=== PATIENT | female | born 1970 | race Caucasian/White ===

== ENCOUNTER 2018-06-12 16:47 | Inpatient (IN) ==
[2018-06-12] MEDS ORDERED: LORazepam 1 MG/2 ML VIAL IV STA (18:05)
[2018-06-12] MEDS ORDERED: ACETAMINOPHEN 1,000 MG/100 ML VIAL IV STA (18:05)
[2018-06-12] MEDS ORDERED: SODIUM CHLORIDE 0.9% 500 ML IV ONE (18:05)
[2018-06-12 18:27] LABS: Basophils # (auto) 0.04 K/uL (0-0.2); Basophils % (auto) 0.6 %; Eosinophils # (auto) 0.15 K/uL (0-0.5); Eosinophils % (auto) 2.3 %; Hematocrit (blood only) 40.2 % (37-47); Hemoglobin 13.7 g/dL (12.0-16.0); Immature Granulocytes # (auto) 0.01 K/uL (0.00-0.02); Immature Granulocytes % (auto) 0.2 %; Lymphocytes # (auto) 1.86 K/uL (1.2-3.4); Lymphocytes % (auto) 28.9 %; Mean Corpuscular Hgb Conc 34.1 g/dL (32-36); Mean Corpuscular Volume 85.9 fL (80-100); Mean Platelet Volume 9.4 fL (7.4-10.4); Monocytes # (auto) 0.39 K/uL (0.11-0.59); Monocytes % (auto) 6.1 %; Neutrophils # (auto) 3.99 K/uL (1.4-6.5); Neutrophils % (auto) 61.9 %; Platelet Count 376 K/uL (130-400); RDW Coefficient of Variation 12.8 % (11.5-14.5); RDW Standard Deviation 40.6 fL (36.4-46.3); Red Blood Count 4.68 M/uL (4.2-5.4); White Blood Count 6.44 K/uL (4.8-10.8)
[2018-06-12 18:42] LABS: Pregnancy Test, Serum Negative (Negative)
[2018-06-12 18:43] LABS: Alanine Aminotransferase 21 U/L (12-78); Albumin Level 3.7 gm/dl (3.4-5.0); Aspartate Aminotransferase 12 U/L (15-37); BUN Creatinine Ratio 15.2 (10-20); Blood Urea Nitrogen 11 mg/dl (7-18); Calcium 8.7 mg/dl (8.5-10.1); Carbon Dioxide 27 mmol/L (21-32); Chloride 107 mmol/L (98-107); Creatinine Clr Calc Pharmacy 86.9 ml/min; Est GFR (African American) 115.9; Glucose 82 mg/dl (70-99); Magnesium 2.1 mg/dl (1.8-2.4); Potassium 3.4 mmol/L (3.5-5.1); Sodium 140 mmol/L (136-145)
[2018-06-12 18:54] LABS: Albumin Globulin Ratio 1.1 (0.9-2); Alkaline Phosphatase 99 U/L (45-117); Bilirubin,Total 0.4 mg/dl (0.2-1); Globulin 3.4 gm/dl (2.5-4.0); Total Protein 7.1 gm/dl (6.4-8.2); Troponin I < 0.015 ng/ml (0-0.045)
--- NOTE | 2018-06-12 19:44 | XRay Report ---
XR abdomen 2V w PA chest CLINICAL HISTORY: 47 years-old Female presenting with nausea, abd pain, palpitations. TECHNIQUE: PA view of the chest and supine and upright views of the abdomen were obtained. COMPARISON: None. FINDINGS: Atherosclerosis of the aortic arch. Cardiac silhouette normal in size. Lungs and pleural spaces clear . Cholecystectomy clips noted. Suture material noted at the gastroesophageal junction. Suture margin no db in the left mid abdomen, which may relate to prior gastric sleeve procedure. Nonobstructive bowel gas pattern. No gross pneumoperitoneum. Allowing for bowel gas and stool, no calcifications to suggest nephrolithiasis. Osseous structures normal. IMPRESSION: 1. No acute cardiopulmonary disease. 2. Post-surgical changes in the abdomen without radiographic evidence of acute intra-abdominal patho logy. Electronically signed by: Fabio Grijalva M.D. 06/12/2018 7:43 PM
[2018-06-12 20:44] LABS: Appearance Urine Clear (Clear); Bilirubin Urine Negative (Negative); Blood Urine Negative (Negative); Color Urine Yellow; Glucose Urine UA Negative (Negative); Leukocyte Esterase Urine Negative (Negative); Nitrite Urine Negative (Negative); Protein Urine Negative (Negative); Specific Gravity Urine 1.036 (1.000-1.030); Urobilinogen Urine Negative (Negative)
[2018-06-12] MEDS ORDERED: IOVERSOL 100ml IV PRN (20:45)
[2018-06-12 20:46] LABS: Ketones Urine 3+ (Negative)
--- NOTE | 2018-06-12 20:58 | CT Scan Report ---
CT abd pelvis IV con only CLINICAL HISTORY: 47 years-old Female presenting with generalized abd pain, n/v. TECHNIQUE: Multidetector CT of the abdomen and pelvis was performed after the administration of intra venous contrast. IV contrast: 94 mL of Optiray 320. One or more dose lowering techniques were used co nsistent with the principles of ALARA (as low as reasonably achievable), including automatic exposure control, mA or kV adjustment to individual patient size, and/or use of iterative reconstruction. COMPARISON: None. CT DOSE (mGy.cm): The estimated cumulative dose is 280.38 mGy.cm. FINDINGS: Community Engagement Representative topogram: Unremarkable. Lung bases: Normal heart size. No pericardial or pleural effusion. No focal infiltrate or nodule at t he lung bases. Liver: Normal morphology. Hypodensity along the fissure for the ligamentum teres likely perfusional v ariation or focal fat. Patent hepatic vasculature. Biliary: No intrahepatic or extrahepatic biliary ductal dilatation. Gallbladder surgically absent. Pancreas: Normal. Spleen: Normal. Splenule noted. Adrenal glands: Normal. Kidneys and ureters: Well-defined hypodensity in the right kidney likely simple cysts. Additional sma ller simple cysts may be present in the left kidney though too small to characterize. No nephrolithia sis or hydronephrosis. Ureters nondistended. Bladder: Incompletely evaluated secondary to underdistention. A urethral diverticulum is likely prese nt. Pelvic organs: Uterus surgically absent. Simple appearing 3.1 cm cyst in the right ovary. Left ovary normal. Bowel: Normal. No bowel obstruction. Small to moderate hiatal hernia. Postsurgical changes of the sto mach likely gastric sleeve procedure. Peritoneal cavity: No free fluid or intraperitoneal gas. Lymph nodes: No enlarged lymph nodes in the abdomen or pelvis. Vasculature: Aorta and IVC patent and normal in caliber. Abdominal wall: Postsurgical changes of the midline ventral abdominal wall. Musculoskeletal: Normal. IMPRESSION: 1. Small to moderate hiatal with postsurgical changes of gastric sleeve procedure. No bowel obstruct ion or other complication is evident. No convincing evidence of acute intra-abdominal pathology. 2. Simple appearing 3.1 cm cyst in the right ovary. Assuming a premenopausal status, this would be c onsidered benign with no follow-up indicated per the [employer] incidental finding s committee II recommendations. Electronically signed by: Fabio Grijalva M.D. 06/12/2018 8:56 PM
[2018-06-12 22:12] LABS: Amphetamines+Metham, Urine Neg (Neg); Barbiturates, Urine Neg (Neg); Benzodiazepine, Urine Neg (Neg); Cocaine, Urine Neg (Neg); MDMA (Ecstacy), Urine Pos (Neg); Methadone, Urine Neg (Neg); Opiate, Urine Neg (Neg); Phencyclidine, Urine Neg (Neg)
--- NOTE | 2018-06-12 22:21 | Emergency Department Note ---
Entered by Bhavesh Nash acting as a scribe for Allison Weinberg DO History of Present Illness General Chief complaint: Neuro Symptoms/Deficit Stated complaint: ABDOMINAL SPASMS, MOUTH NUMB Time Seen by Provider: 06/12/18 17:45 Source: patient History of Present Illness Onset (ago): month(s) 1 Location: head Radiation: back Pain Consistency: + other (worsening) Quality: + other (anxiety) Relieved By: + other (heat, arching her back) Associated symptoms: + other (She also complains of cramping, back pain, nausea, a decreased appetite, SOB, and palpitations. She denies any fever, diarrhea, vomiting, and urinary symptoms. ) The patient is a 47 year old female who presents to the emergency department wit h complaints of worsening anxiety beginning a month ago. The patient states that she has a history of PTSD, depression, and anorexia. The patient states that she had an abdominoplasty done seven months ago. She notes that she has been healing since then but developed worsening depression throughout the process. She reports that she recently started using medical marijuana last week. The patient states that she started to develop cramping In her abdomen, shoulder, and neck this morning. She notes that her abdominal cramping feels like contractions. She reports that her abdominal pain is relieved with heat or when she arches her back. The patient states that her pain radiates to her back. She also complains of nausea, a decreased appetite, SOB, and palpitations. She denies any fever, diarrhea, vomiting, and urinary symptoms. She notes that she recently stopped taking her magnesium and Klonopin. She notes that she also has a history of gastroparesis, but she reports that her symptoms do not feel similar. Home Medications Home Medications Medication Instructions Recorded Confirmed Type Marijuana 1 dose INHALATION UD PRN 06/12/18 06/12/18 History Multi Enzymes 1 - 3 tabs PO DAILY 06/12/18 06/12/18 History Vitamin C Gummy 48 mg PO DAILY 06/12/18 06/12/18 History albuterol sulfate [ProAir HFA] 2 puff INHALATION Q6H PRN 06/12/18 06/12/18 History bupropion HCl [Wellbutrin SR] 200 mg PO BID 06/12/18 06/12/18 History calcium carbonate [Tums] 200 mg PO UD PRN 06/12/18 06/12/18 History cholecalciferol (vitamin D3) 2,000 unit PO DAILY 06/12/18 06/12/18 History [Vitamin D3] clindamycin phosphate [Cleocin T] 1 applic TOPICAL UD 06/12/18 06/12/18 History clonazepam [Klonopin] 1 mg PO BID PRN 06/12/18 06/12/18 History diclofenac sodium 0 g TOPICAL UD PRN 06/12/18 06/12/18 History docusate sodium [Colace] 100 mg PO DAILY PRN 06/12/18 06/12/18 History fluticasone propionate [Flonase 1 spray INTRANASAL DAILY PRN 06/12/18 06/12/18 History Allergy Relief] ketotifen fumarate [Zaditor] 1 drp OPHTHALMIC (EYE) BID PRN 06/12/18 06/12/18 History levothyroxine [Synthroid] 88 mcg PO QAM 06/12/18 06/12/18 History lorazepam 0.5 mg PO UD PRN 06/12/18 06/12/18 History methylphenidate HCl [Metadate ER] 20 mg PO BID 06/12/18 06/12/18 History multivit with min-folic acid 1 tab PO DAILY 06/12/18 06/12/18 History [Women's Multivitamin Gummies] [id number]-wam-bot-fish oil-L.casei 1 cap PO DAILY 06/12/18 06/12/18 History omeprazole 40 mg PO QAM 06/12/18 06/12/18 History polyethylene glycol 3350 [Miralax] 17 g PO DAILY PRN 06/12/18 06/12/18 History simethicone [Gas Relief 80] 80 mg PO BID PRN 06/12/18 06/12/18 History sulfamethoxazole-trimethoprim 1 tab PO QAM 06/12/18 06/12/18 History [Bactrim] white petrolatum-mineral oil 1 applic OPHTHALMIC (EYE) BID PRN 06/12/18 06/12/18 History [Refresh Lacri-Lube] Allergies Allergy/AdvReac Type Severity Reaction Status Date / Time adhesive Allergy Intermediate Rash Verified 06/12/18 19:36 latex Allergy Intermediate Rash Verified 06/12/18 19:36 fluoxetine [From Prozac] AdvReac Severe Tachycardia Verified 06/12/18 19:37 midazolam [From Versed] AdvReac Severe WON'T WAKE Verified 06/12/18 19:36 UP buspirone [From BuSpar] AdvReac >QRS Verified 06/12/18 19:37 INTERVAL Past Med/Surg History Medical History Anorexia Depression Gastroparesis PTSD (post-traumatic stress disorder) Surgical History H/O abdominoplasty Family History Other No significant family history Social History Preferred Language: [place] Communication Ability: Effective Visitor Service Assistant Required: No Beliefs That Will Affect Care: None Feels Safe at Home: Yes and Hesitant to Answer Smoking Status: Never smoker Hx Substance Use: Yes Review of Systems See HPI for pertinent positives & negatives. and A total of 10 systems reviewed and were otherwise negative Physical Exam Vital Signs Vital Signs - 24 hr 06/14/18 06:51 Temperature 36.6 C Temperature Source Oral Pulse Rate [Left Brachial] 80 Respiratory Rate 16 Respiratory Effort / Characteristics Non-Labored Spontaneous Respiratory Depth Normal Respiratory Pattern Regular Blood Pressure [Left Arm] 111/70 Blood Pressure Mean [Left Arm] 83 Blood Pressure Position [Left Arm] Sitting GENERAL: alert, anxious and tearful appearing, well nourished, in moderate distress, non-toxic EYE EXAM: normal conjunctiva, PERRL and EOM's grossly intact OROPHARYNX: no exudate, no erythema, lips, buccal mucosa, and tongue normal and mucous membranes are moist NECK: supple, no nuchal rigidity, no adenopathy, non-tender LUNGS: Clear to auscultation. Normal chest wall mechanics, no w/r/r HEART: no murmurs, S1 normal and S2 normal ABDOMEN: abdomen soft, normo-active bowel sounds, no masses, no rebound or guard ing, generalized abdominal discomfort with palpation, multiple well healed surgical scars. BACK: Back is symmetrical on inspection and there is no deformity, no midline tenderness, no CVA tenderness. SKIN: no rashes and no bruising UPPER EXTREMITIES: upper extremities are grossly normal. FROM, nml pulses b/l. LOWER EXTREMITIES: No pitting edema. FROM, nml pulses b/l. NEURO EXAM: Normal sensorium, cranial nerves II-XII grossly intact, normal speech, no gross weakness of arms, no gross weakness of legs. Course 1746: The patient was evaluated in room A5, and a complete history and physical examination were performed. 1999: I discussed the patient's case with the psychiatric case management director. She states that the patient is now suicidal with a plan. 2009: I reevaluated and updated the patient. She states that her pain is better but still there. 2134: Updated psych case manager specialist that CT a/p unremarkable and I feel pt is medically clear. UDS still pending. 2351: The patient was seen and evaluated by [facility]. She signed the voluntary admission form. Administered Medications Acetaminophen (Tylenol) 650 mg PO Q4H PRN PRN Reason: Headache or Minor Fever Stop: 07/13/18 00:33 Last Admin: 06/13/18 21:22 Dose: 650 mg Documented by: [id number] Admin: 06/13/18 14:03 Dose: 650 mg Documented by: [id number] Ascorbic Acid (Vitamin C) 500 mg PO DAILY ZEFERINO Stop: 07/14/18 08:59 Last Admin: 06/14/18 08:49 Dose: 500 mg Documented by: [id number] Bupropion HCl (Wellbutrin) 200 mg PO BID@0600,1400 [facility] Stop: 07/13/18 05:59 Last Admin: 06/14/18 14:30 Dose: 200 mg Documented by: [id number] Admin: 06/14/18 08:49 Dose: 200 mg Documented by: [id number] Admin: 06/14/18 06:41 Dose: Not Given Documented by: [id number] Admin: 06/13/18 14:00 Dose: 200 mg Documented by: [id number] Admin: 06/13/18 06:26 Dose: 200 mg Documented by: [id number] Clonazepam (Klonopin) 0.5 mg PO BID17 ZEFERINO Stop: 07/14/18 16:59 Last Admin: 06/14/18 20:59 Dose: 0.5 mg Documented by: [id number] Diclofenac Sodium (Voltaren 1% Top) 1 appln EXT QID PRN PRN Reason: Pain Stop: 07/13/18 16:59 Last Admin: 06/14/18 21:59 Dose: 1 appln Documented by: [id number] Admin: 06/14/18 12:36 Dose: 1 appln Documented by: [id number] Fish Oil ([place]-3 (Purified Fish Oil)) 1 gm PO DAILY ZEFERINO Stop: 07/14/18 08:59 Last Admin: 06/14/18 08:48 Dose: 1 gm Documented by: [id number] Ioversol (Optiray 320 100ml) 94 ml IV ONCE PRN PRN Reason: Interaction Checking Stop: 06/16/18 20:44 Last Admin: 06/12/18 20:46 Dose: 94 ml Documented by: [id number] [facility]othy[facility]) [facility] Stop: 07/13/18 07:59 Last Admin: 06/14/18 06:13 Dose: 88 mcg Documented by: [id number] Admin: 06/13/18 07:27 Dose: 88 mcg Documented by: [id number] Miscellaneous (Order Awaiting Action) 1 ea N/A [facility] Stop: 07/13/18 15:59 Last Admin: 06/14/18 14:33 Dose: Not Given Documented by: [id number] Admin: 06/14/18 07:26 Dose: Not Given Documented by: [id number] Admin: 06/14/18 00:44 Dose: Not Given Documented by: [id number] Admin: 06/13/18 17:38 Dose: Not Given Documented by: [id number] Miscellaneous (Order Awaiting Action) 1 ea N/A [facility] Stop: 07/13/18 15:59 Last Admin: 06/14/18 14:33 Dose: Not Given Documented by: [id number] Admin: 06/14/18 07:26 Dose: Not Given Documented by: [id number] Admin: 06/14/18 00:44 Dose: Not Given Documented by: [id number] Admin: 06/13/18 17:39 Dose: Not Given Documented by: [id number] Miscellaneous (Order Awaiting Action) 1 ea N/A QS [facility] Stop: 07/13/18 15:59 Last Admin: 06/14/18 14:33 Dose: Not Given Documented by: [id number] Admin: 06/14/18 07:26 Dose: Not Given Documented by: [id number] Admin: 06/14/18 00:44 Dose: Not Given Documented by: [id number] Admin: 06/13/18 17:38 Dose: Not Given Documented by: [id number] Multivitamins/Folic Acid/Vitamin C (Flintstones Complete Chew Tab) 1 tab PO DA RUDY ZEFERINO Stop: 07/14/18 08:59 Last Admin: 06/14/18 08:48 Dose: 1 tab Documented by: [id number] Pantoprazole Sodium (Protonix) 40 mg PO QAM ZEFERINO Stop: 07/13/18 12:59 Last Admin: 06/14/18 08:48 Dose: 40 mg Documented by: [id number] Admin: 06/13/18 13:12 Dose: 40 mg Documented by: [id number] Trimethoprim/Sulfamethoxazole (Septra 400/80mg Tab) 1 tab PO QAM ZEFERINO Stop: 06/23/18 08:59 Last Admin: 06/14/18 08:48 Dose: 1 tab Documented by: [id number] Admin: 06/13/18 07:27 Dose: 1 tab Documented by: [id number] Vitamin D (Vitamin D3) 2,000 units PO DAILY ZEFERINO Stop: 07/14/18 08:59 Last Admin: 06/14/18 08:48 Dose: 2,000 units Documented by: [id number] Discontinued Medications Clonazepam (Klonopin) 0.5 mg PO BID ZEFERINO Stop: 07/13/18 11:59 Last Admin: 06/14/18 08:48 Dose: 0.5 mg Documented by: [id number] Admin: 06/13/18 21:23 Dose: 0.5 mg Documented by: [id number] Admin: 06/13/18 11:41 Dose: 0.5 mg Documented by: [id number] Lorazepam (Ativan) 1 mg in 2 mls @ 2 mls/min IV NOW STA Stop: 06/12/18 18:06 Last Admin: 06/12/18 18:28 Dose: 2 mls/min Documented by: [id number] Acetaminophen (Ofirmev) 1,000 mg in 100 mls @ 400 mls/hr IV NOW STA Stop: 06/12/18 18:19 Last Infusion: 06/12/18 18:55 Dose: 0 mls/hr Documented by: [id number] Admin: 06/12/18 18:30 Dose: 400 mls/hr Documented by: [id number] Sodium Chloride (Nss) 500 mls @ 999 mls/hr IV .Q31M ONE Stop: 06/12/18 18:35 Last Infusion: 06/12/18 19:04 Dose: 0 mls/hr Documented by: [id number] Admin: 06/12/18 18:29 Dose: 999 mls/hr Documented by: [id number] Methylphenidate HCl (Ritalin) 20 mg PO BID@0600,1400 [facility] Stop: 06/27/18 05:59 Last Admin: 06/13/18 13:59 Dose: 20 mg Documented by: [id number] Admin: 06/13/18 06:26 Dose: 20 mg Documented by: [id number] Non-Formulary Medication (Omeprazole) 40 mg PO QAM ZEFERINO Stop: 07/13/18 11:49 Last Admin: 06/13/18 15:31 Dose: Not Given Documented by: [id number] Pneumococcal Polyvalent Vaccine (Pneumovax-23) 25 mcg IM .ONCE ONE Stop: 06/13/18 15:31 Last Admin: 06/14/18 14:32 Dose: Not Given Documented by: [id number] Medical Decision Making Differential Diagnosis Differential diagnosis: Etiologies such as biliary colic, cholecystitis, hepatitis, perihepatitis, pancreatitis, cardiac disease, pancreatitis, gastritis, peptic ulcer disease, appendicitis, ovarian cyst, ovarian torsion, ectopic , pelvic inflammatory disease, cystitis, diverticulitis, mesenteric ischemia, inflammatory bowel disease, ileus, bowel obstruction, aortic pathology, shingles, as well as others were considered. Medical Records Attestation: I reviewed the patient's medical records. Home Medications Current Medication List: was personally reviewed by me Laboratory Data Attestation: I reviewed the patient's lab results. Result diagrams: 06/12/18 18:15 06/14/18 12:19 Lab Results 06/12/18 06/12/18 06/12/18 Range/Units 18:15 18:15 18:15 WBC 6.44 (4.8-10.8) K/uL RBC 4.68 (4.2-5.4) M/uL Hgb 13.7 (12.0-16.0) g/dL Hct 40.2 (37-47) % MCV 85.9 (80-100) fL MCH 29.3 (25-34) pg MCHC 34.1 (32-36) g/dL RDW Std Deviation 40.6 (36.4-46.3) fL RDW Coeff of Eva 12.8 (11.5-14.5) % Plt Count 376 (130-400) K/uL MPV 9.4 (7.4-10.4) fL Immature Gran % (Auto) 0.2 % Neut % (Auto) 61.9 % Lymph % (Auto) 28.9 % Robertson % (Auto) 6.1 % Eos % (Auto) 2.3 % Baso % (Auto) 0.6 % Immature Gran # (Auto) 0.01 (0.00-0.02) K/uL Neut # (Auto) 3.99 (1.4-6.5) K/uL Lymph # (Auto) 1.86 (1.2-3.4) K/uL Robertson # (Auto) 0.39 (0.11-0.59) K/uL Eos # (Auto) 0.15 (0-0.5) K/uL Baso # (Auto) 0.04 (0-0.2) K/uL Sodium 140 (136-145) mmol/L Potassium 3.4 L (3.5-5.1) mmol/L Chloride 107 (98-107) mmol/L Carbon Dioxide 27 (21-32) mmol/L Anion Gap 6.0 (3-11) BUN 11 (7-18) mg/dl Creatinine 0.71 (0.6-1.2) mg/dl Est Cr Clr Drug Dosing 86.9 ml/min Est GFR ( Amer) 115.9 Est GFR (Non-Af Amer) 100.0 BUN/Creatinine Ratio 15.2 (10-20) Glucose 82 (70-99) mg/dl Calcium 8.7 (8.5-10.1) mg/dl Phosphorus (2.5-4.9) mg/dl Magnesium 2.1 (1.8-2.4) mg/dl Total Bilirubin 0.4 (0.2-1) mg/dl AST 12 L (15-37) U/L ALT 21 (12-78) U/L Alkaline Phosphatase 99 (45-117) U/L Troponin I < 0.015 (0-0.045) ng/ml Total Protein 7.1 (6.4-8.2) gm/dl Albumin 3.7 (3.4-5.0) gm/dl Globulin 3.4 (2.5-4.0) gm/dl Albumin/Globulin Ratio 1.1 (0.9-2) Lipase 124 (73-393) U/L TSH 0.947 (0.300-4.500) uIu/ml HCG, Qual Negative (Negative) Urine Color Urine Appearance (Clear) Urine pH (4.5-7.5) Ur Specific [place] (1.000-1.030) Urine Protein (Negative) Urine Glucose (UA) (Negative) Urine Ketones (Negative) Urine Blood (Negative) Urine Nitrite (Negative) Urine Bilirubin (Negative) Urine Urobilinogen (Negative) Ur Leukocyte Esterase (Negative) Urine Opiates Screen (Neg) Ur Methadone, Qual (Neg) Urine Barbiturates (Neg) Ur Phencyclidine (PCP) (Neg) U Amphetamin/Meth Scrn (Neg) MDMA (Ecstasy) Screen (Neg) U Benzodiazepines Scrn (Neg) Ur Cocaine Metabolite (Neg) U Marijuana (THC) Screen (Neg) 06/12/18 06/12/18 06/14/18 Range/Units Unknown Unknown 12:19 WBC (4.8-10.8) K/uL RBC (4.2-5.4) M/uL Hgb (12.0-16.0) g/dL Hct (37-47) % MCV (80-100) fL MCH (25-34) pg MCHC (32-36) g/dL RDW Std Deviation (36.4-46.3) fL RDW Coeff of Eva (11.5-14.5) % Plt Count (130-400) K/uL MPV (7.4-10.4) fL Immature Gran % (Auto) % Neut % (Auto) % Lymph % (Auto) % Robertson % (Auto) % Eos % (Auto) % Baso % (Auto) % Immature Gran # (Auto) (0.00-0.02) K/uL Neut # (Auto) (1.4-6.5) K/uL Lymph # (Auto) (1.2-3.4) K/uL Robertson # (Auto) (0.11-0.59) K/uL Eos # (Auto) (0-0.5) K/uL Baso # (Auto) (0-0.2) K/uL Sodium 141 (136-145) mmol/L Potassium 4.1 D (3.5-5.1) mmol/L Chloride 107 (98-107) mmol/L Carbon Dioxide 26 (21-32) mmol/L Anion Gap 7.0 (3-11) BUN 14 (7-18) mg/dl Creatinine 0.73 (0.6-1.2) mg/dl Est Cr Clr Drug Dosing 84.0 ml/min Est GFR ( Amer) 112.1 Est GFR (Non-Af Amer) 96.7 BUN/Creatinine Ratio 19.2 (10-20) Glucose 111 H (70-99) mg/dl Calcium 9.4 (8.5-10.1) mg/dl Phosphorus 3.3 (2.5-4.9) mg/dl Magnesium 2.1 (1.8-2.4) mg/dl Total Bilirubin (0.2-1) mg/dl AST (15-37) U/L ALT (12-78) U/L Alkaline Phosphatase (45-117) U/L Troponin I (0-0.045) ng/ml Total Protein (6.4-8.2) gm/dl Albumin (3.4-5.0) gm/dl Globulin (2.5-4.0) gm/dl Albumin/Globulin Ratio (0.9-2) Lipase (73-393) U/L TSH (0.300-4.500) uIu/ml HCG, Qual (Negative) Urine Color Yellow Urine Appearance Clear (Clear) Urine pH 6.0 (4.5-7.5) Ur Specific [place] 1.036 H (1.000-1.030) Urine Protein Negative (Negative) Urine Glucose (UA) Negative (Negative) Urine Ketones 3+ H (Negative) Urine Blood Negative (Negative) Urine Nitrite Negative (Negative) Urine Bilirubin Negative (Negative) Urine Urobilinogen Negative (Negative) Ur Leukocyte Esterase Negative (Negative) Urine Opiates Screen Neg (Neg) Ur Methadone, Qual Neg (Neg) Urine Barbiturates Neg (Neg) Ur Phencyclidine (PCP) Neg (Neg) U Amphetamin/Meth Scrn Neg (Neg) MDMA (Ecstasy) Screen Pos H (Neg) U Benzodiazepines Scrn Neg (Neg) Ur Cocaine Metabolite Neg (Neg) U Marijuana (THC) Screen Pos H (Neg) Imaging Data Radiologist's Impression: Radiology results as stated below per my review and the radiologist's interpretation: CT abd pelvis IV con only FINDINGS: Fringe Knotter topogram: Unremarkable. Lung bases: Normal heart size. No pericardial or pleural effusion. No focal i nfiltrate or nodule at the lung bases. Liver: Normal morphology. Hypodensity along the fissure for the ligamentum teres likely perfusional variation or focal fat. Patent hepatic vasculature. Biliary: No intrahepatic or extrahepatic biliary ductal dilatation. Gallbladder surgically absent. Pancreas: Normal. Spleen: Normal. Splenule noted. Adrenal glands: Normal. Kidneys and ureters: Well-defined hypodensity in the right kidney likely simple cysts. Additional smaller simple cysts may be present in the left kidney though too small to characterize. No nephrolithiasis or hydronephrosis. Ureters nondistended. Bladder: Incompletely evaluated secondary to underdistention. A urethral diverticulum is likely present. Pelvic organs: Uterus surgically absent. Simple appearing 3.1 cm cyst in the right ovary. Left ovary normal. Bowel: Normal. No bowel obstruction. Small to moderate hiatal hernia. Postsurgical changes of the stomach likely gastric sleeve procedure. Peritoneal cavity: No free fluid or intraperitoneal gas. Lymph nodes: No enlarged lymph nodes in the abdomen or pelvis. Vasculature: Aorta and IVC patent and normal in caliber. Abdominal wall: Postsurgical changes of the midline ventral abdominal wall. Musculoskeletal: Normal. IMPRESSION: 1. Small to moderate hiatal with postsurgical changes of gastric sleeve procedure. No bowel obstruction or other complication is evident. No convincing evidence of acute intra-abdominal pathology. 2. Simple appearing 3.1 cm cyst in the right ovary. Assuming a premenopausal status, this would be considered benign with no follow-up indicated per the [employer] incidental findings committee II recommendations. Electronically signed by: Fabio Grijalva M.D. 06/12/2018 8:56 PM XR abdomen 2V w PA chest FINDINGS: Atherosclerosis of the aortic arch. Cardiac silhouette normal in size. Lungs and pleural spaces clear. Cholecystectomy clips noted. Suture material noted at the gastroesophageal junction. Suture margin noted in the left mid abdomen, which may relate to prior gastric sleeve procedure. Nonobstructive bowel gas pattern. No gross pneumoperitoneum. Allowing for bowel gas and stool, no calcifications to suggest nephrolithiasis. Osseous structures normal. IMPRESSION: 1. No acute cardiopulmonary disease. 2. Post-surgical changes in the abdomen without radiographic evidence of acute intra-abdominal pathology. Electronically signed by: Fabio Grijalva M.D. 06/12/2018 7:43 PM ECG Data Attestation: I personally reviewed and interpreted this ECG as follows: Indication: abdominal pain Rate (beats per minute): 79 Rhythm: sinus rhythm Findings: no PAC, no PVC, no ST depression and no ST elevation Additional Comments: Normal axis, normal intervals. Blood Pressure Blood Pressure Findings: Normal blood pressure Blood Pressure Disposition: elevated BP felt to be situational MDM Narrative Pt here very anxious appearing and during the course of her medical screening exam and evaluation for abdominal pain and cramping, pt told psych case manager specialist she was suicidal. Pt's labs and imaging reassuring here. Pt admitted to for inpatient psych treatment. Impression & Plan Depression, Anxiety Discharge Plan Visit Data *Final* Discharge Date/Time: 06/12/18 23:58 Chief Complaint: Neuro Symptoms/Deficit Stated Complaint: ABDOMINAL SPASMS, MOUTH NUMB ED Provider: Allison Weinberg Discharge Problem: Depression, Anxiety Patient Disposition: Admitted As Inpatient Discharge Instructions Interventions: ED Discharge Assessment Last Done: 06/12/18 23:58 Discharge Problem: Depression Qualifiers: Depression Type: unspecified Qualified Code(s): F32.9 - Major depressive disorder, single episode, unspecified The scribe's documentation has been prepared under my direction and personally reviewed by me in its entirety. I confirm that the note above accurately reflects all work, treatment, procedures, and medical decision making performed by me.
[2018-06-13] MEDS ORDERED: MAGNESIUM HYDROXIDE SUSP 30 ML UDC PO PRN (00:34)
[2018-06-13] MEDS ORDERED: SODIUM CHLORIDE 0.65% NA SOLN 45 ML (OCEAN) PRN (00:34)
[2018-06-13] MEDS ORDERED: BISMUTH SUBSALICYLATE PER ML OMNICELL CHARGE PO PRN (00:34)
[2018-06-13] MEDS ORDERED: ALUMINUM/MAGNESIUM SUSP 30 ML UDC PO PRN (00:34)
[2018-06-13] MEDS: METHYLPHENIDATE HCL 10 MG TABLET PO SCH ×2 (06:26→13:59)
[2018-06-13] MEDS: buPROPion HCl 100 MG TABLET PO SCH ×2 (06:26→14:00)
[2018-06-13] MEDS: LEVOTHYROXINE SODIUM 88 MCG TABLET PO SCH (07:27)
[2018-06-13] MEDS: SULFA/TRIMETH 400/80MG TAB PO SCH (07:27)
[2018-06-13] MEDS: clonazePAM 0.5 MG TAB PO SCH ×2 (11:41→21:23)
[2018-06-13] MEDS ORDERED: FLUTICASONE PROPIONATE NA SPR 16 GM BTL PRN (11:45)
[2018-06-13] MEDS ORDERED: DOCUSATE SODIUM 100 MG CAP PO PRN (11:45)
[2018-06-13] MEDS ORDERED: CALCIUM CARBONATE 500 MG CHEWABLE TAB PO PRN (11:45)
[2018-06-13] MEDS ORDERED: SIMETHICONE 80 MG CHEW PO PRN (11:45)
[2018-06-13] MEDS ORDERED: POLYETHYLENE (MIRALAX) 17 GM PACK PO PRN (11:45)
[2018-06-13] MEDS ORDERED: NON-FORMULARY MEDICATION (Omeprazole 40 MG) PO SCH (11:50)
[2018-06-13] MEDS ORDERED: ALBUTEROL HFA 8 GM INHALER INH PRN (12:30)
[2018-06-13] MEDS: PANTOprazole 40 MG TAB PO SCH (13:12)
[2018-06-13] MEDS: ACETAMINOPHEN 325 MG TAB PO PRN ×2 (14:03→21:22)
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
[2018-06-13] MEDS ORDERED: PNEUMOCOCCAL POLYSACCHARIDES 25 MCG/0.5 ML VIAL/SYR IM ONE (15:30)
[2018-06-13] MEDS ORDERED: PNEUMOCOCCAL ADMINISTRATION CHARGE ONE (15:30)
[2018-06-13] MEDS ORDERED: METHYLPHENIDATE HCL 20 MG PO SCH (21:00)
[2018-06-14] MEDS: LEVOTHYROXINE SODIUM 88 MCG TABLET PO SCH (06:13)
[2018-06-14] MEDS: buPROPion HCl 100 MG TABLET PO SCH ×3 (06:41→14:30)
[2018-06-14] MEDS: PANTOprazole 40 MG TAB PO SCH (08:48)
[2018-06-14] MEDS: clonazePAM 0.5 MG TAB PO SCH ×2 (08:48→20:59)
[2018-06-14] MEDS: FLINTSTONES COMPLETE CHEWABLE TAB PO SCH (08:48)
[2018-06-14] MEDS: SULFA/TRIMETH 400/80MG TAB PO SCH (08:48)
[2018-06-14] MEDS: OMEGA-3 (PURIFIED FISH OIL) 1 GM CAP PO SCH (08:48)
[2018-06-14] MEDS: CHOLECALCIFEROL 1,000 UNITS TAB PO SCH (08:48)
[2018-06-14] MEDS: ASCORBIC ACID 500 MG TAB PO SCH (08:49)
[2018-06-14] MEDS ORDERED: [UNRECOGNIZED DRUG - OTHER] PO SCH (09:00)
--- NOTE | 2018-06-14 11:30 | Psychiatric Progress Note ---
Date of Service June 14, 2018 Impression / Recommendations Impression Jen is a 47 yo female with a long mental health history, medical history complicated by GI surgeries, presents with recurrence of SI with inability to care for self and even thoughts about ending the life of herself and perhaps even her son rather than leaving him behind. SW filed [employer]. Jen presented with some degree of benzo withdrawal (or at least worsening of abdominal wall spasms) following d/c of Klonopin in favor of a trial of medical marijuana. (1) Depression: 06/13 The patient was admitted to the [facility] ([facility] unit) on q15 min checks (behavioral with suicide precautions) for safety. The patient will participate in group, recreational, and milieu therapies and will be offered additional individual and family sessions as clinically appropriate. She was made aware that shorter acting medications are preferred given gastric surgery and that there is a higher risk of seizure in patients with ED on Wellbutrin, particularly dose dependent. She is refusing any med changes today and was so decompensated that a MNPR is required. She was exposing her abdomen repeatedly above the pubis in 1-on-1 session and had difficulty maintaining a conversation. 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 Indication for methylphenidate is unclear and should likely be tapered. Difficulty is no records available this weekend. (2) Anxiety: 06/13 PTSD vs personality, resulting in somatization though given surgical history cannot exclude other etiology. Regardless seems to be some degree of Benzo withdrawal so will resume Klonopin 0.5 mg BID and monitor. (3) Abdominal pain: 06/13 Monitor response to benzo, consider hospitalist consult. 06/14 d/c stimulant, appreciate input from nutrition (4) Eating disorder, unspecified: 06/14--explore level of care assessment when psychiatrically more stable. Inventory Assets Strengths: intelligence, friend network Needs: CYS involvement around son Risk Factors Assessment Male: No : Yes Do You Have Access To A Gun?: No Health Problems: Yes Mental Health Diagnoses: Yes Substance Use Disorders: No (but history, and on controlleds) Previous Attempt: Yes Previous Psychiatric Hospitalization: Yes Hopelessness: Yes Protective Factors Assessment Employed: Yes (Substitute school nurse) Interval History Chief Complaint "I'm relieved but overwhelmed at the same time, I don't want to lose him". Review of Systems Sleep Information Total Hours of Sleep: 6 Meal Information Percent Meal Consumed - Breakfast: 50 Percent Meal Consumed - Lunch: 30 Percent Meal Consumed - Dinner: 25 Subjective Subjective Patient was seen & assessed and interval progress reviewed with Nursing and social scientist. SW did have session with patient's friend and confirmed that no access to opiates or benzos. There was discussion about resuming IOP care for ED and patient states she would be amenable to this. Reviewed need to taper stimulants and now admits that only taking in am anyway for past 2 weeks. Some benefit from Klonopin but since lower dose there was some breakthrough before bedtime but feels that contractions are "more than just withdrawal". She appreciated meeting with finance teacher. Patient remains in bed in position and not appropriate for a roommate at this time due to severity of symptoms. Physical Exam Psychiatric Orientation: alert and oriented x 3 Apperance: + disheveled Eye Contact: + poor eye contact Motor Behavior: no abnormal motor movements (but restless) Speech: normal rate/rhythm/volume of speech Affect: + depressed affect and + anxious affect Mood: + depressed mood Thought Process: + circumstantial thought process Thought Content: + preoccupation; no delusions Suicidal Thoughts: denies suicidal thoughts Homicidal Thoughts: denies homicidal thoughts Hallucinations: no auditory hallucinations and no visual hallucinations Cognition: language grossly intact; + remote memory not intact and + attention not intact Estimated Intelligence: consistent with education level Insight: + poor insight Judgement: + poor judgement Vital Signs (Past 24 Hours) Last Vital Signs Temp 36.6 C 06/14/18 06:51 Pulse 80 06/14/18 06:51 Resp 16 06/14/18 06:51 BP 111/70 06/14/18 06:51 Pulse Ox 99 06/13/18 00:54 Results & Data Current Inpatient Medications Current Inpatient Medications: Current Inpatient Medications Acetaminophen (Tylenol) 650 mg PO Q4H PRN PRN Reason: Headache or Minor Fever Stop: 07/13/18 00:33 Last Admin: 06/13/18 21:22 Dose: 650 mg Documented by: Al Hydrox/Mg Hydrox/Simethicone (Maalox) 30 ml PO Q4H PRN PRN Reason: GI Upset Stop: 07/13/18 00:33 Albuterol (Ventolin Hfa) 2 puffs INH Q4H PRN PRN Reason: SOB/WHEEZING Stop: 07/13/18 12:29 Ascorbic Acid (Vitamin C) 500 mg PO DAILY ZEFERINO Stop: 07/14/18 08:59 Last Admin: 06/14/18 08:49 Dose: 500 mg Documented by: Bismuth Subsalicylate (Kaopectate) 15 ml PO PRN PRN PRN Reason: Loose Stool Stop: 07/13/18 00:33 Bupropion HCl (Wellbutrin) 200 mg PO BID@0600,1400 ZEFERINO Stop: 07/13/18 05:59 Last Admin: 06/14/18 08:49 Dose: 200 mg Documented by: Calcium Carbonate (Tums) 500 mg PO DAILY PRN PRN Reason: Acid Reflux Stop: 07/13/18 11:44 Clonazepam (Klonopin) 0.5 mg PO BID17 [facility] Stop: 07/14/18 16:59 Diclofenac Sodium (Voltaren 1% Top) 1 appln EXT QID PRN PRN Reason: Pain Stop: 07/13/18 16:59 Docusate Sodium (Colace) 100 mg PO DAILY PRN PRN Reason: Constipation Stop: 07/13/18 11:44 Fish Oil ([place]-3 (Purified Fish Oil)) 1 gm PO DAILY ZEFERINO Stop: 07/14/18 08:59 Last Admin: 06/14/18 08:48 Dose: 1 gm Documented by: Fluticasone Propionate (Flonase) 1 sprays NA DAILY PRN PRN Reason: Nasal Congestion Stop: 07/13/18 11:44 Hydroxyzine HCl (Vistaril) 50 mg PO HSZ PRN PRN Reason: Insomnia Stop: 07/13/18 00:33 Hydroxyzine HCl (Vistaril) 25 mg PO Q4H PRN PRN Reason: Anxiety Stop: 07/13/18 00:33 Ioversol (Optiray 320 100ml) 94 ml IV ONCE PRN PRN Reason: Interaction Checking Stop: 06/16/18 20:44 Last Admin: 06/12/18 20:46 Dose: 94 ml Documented by: Levothyroxine Sodium (Synthroid) 88 mcg PO DAILYBB ZEFERINO Stop: 07/13/18 07:59 Last Admin: 06/14/18 06:13 Dose: 88 mcg Documented by: Magnesium Hydroxide (Milk Of Magnesia) 30 ml PO DAILY PRN PRN Reason: Heartburn Stop: 07/13/18 00:33 Miscellaneous (Order Awaiting Action) 1 ea N/A QS ZEFERINO Stop: 07/13/18 15:59 Last Admin: 06/14/18 07:26 Dose: Not Given Documented by: Miscellaneous (Order Awaiting Action) 1 ea N/A QS ZEFERINO Stop: 07/13/18 15:59 Last Admin: 06/14/18 07:26 Dose: Not Given Documented by: Miscellaneous (Order Awaiting Action) 1 ea N/A QS ZEFERINO Stop: 07/13/18 15:59 Last Admin: 06/14/18 07:26 Dose: Not Given Documented by: Multivitamins/Folic Acid/Vitamin C (Flintstones Complete Chew Tab) 1 tab PO DAILY ZEFERINO Stop: 07/14/18 08:59 Last Admin: 06/14/18 08:48 Dose: 1 tab Documented by: Pantoprazole Sodium (Protonix) 40 mg PO QAM ZEFERINO Stop: 07/13/18 12:59 Last Admin: 06/14/18 08:48 Dose: 40 mg Documented by: Polyethylene Glycol (Miralax Powder Packet) 17 gm PO DAILY PRN PRN Reason: Constipation Stop: 07/13/18 11:44 Simethicone (Mylicon) 80 mg PO BID PRN PRN Reason: GAS/BLOATING Stop: 07/13/18 11:44 Sodium Chloride ([place] Nasal) 1 - 2 sprays NA PRN PRN PRN Reason: Nasal Dryness/Congestion Stop: 07/13/18 00:33 Trimethoprim/Sulfamethoxazole (Septra 400/80mg Tab) 1 tab PO QAM ZEFERINO Stop: 06/23/18 08:59 Last Admin: 06/14/18 08:48 Dose: 1 tab Documented by: Vitamin D (Vitamin D3) 2,000 units PO DAILY ZEFERINO Stop: 07/14/18 08:59 Last Admin: 06/14/18 08:48 Dose: 2,000 units Documented by: Post Discharge Appointments Primary Care Physician Name Of Family Doctor: Shreyas Akins Family Medicine Therapist Name of Therapist: Eula Ryder, private practice in [facility] Date of Therapist Appointment: 06/16/18 Time of Therapist Appointment: 9am Package Line Relief Operator Name of Package Line Relief Operator: None CPT Code CPT Code 46955 (1) Depression Depression Type: unspecified Qualified Code(s): F32.9 - Major depressive disorder, single episode, unspecified
[2018-06-14] MEDS: DICLOFENAC SOD 1% GEL 100 GM TUBE EXT PRN ×2 (12:36→21:59)
[2018-06-14 13:01] LABS: BUN Creatinine Ratio 19.2 (10-20); Calcium 9.4 mg/dl (8.5-10.1); Est GFR (African American) 112.1; Est GFR (Non-African American) 96.7; Magnesium 2.1 mg/dl (1.8-2.4); Phosphorus 3.3 mg/dl (2.5-4.9); Potassium 4.1 mmol/L (3.5-5.1)
[2018-06-15] MEDS: LEVOTHYROXINE SODIUM 88 MCG TABLET PO SCH (06:02)
[2018-06-15] MEDS: buPROPion HCl 100 MG TABLET PO SCH ×3 (06:02→13:53)
[2018-06-15] MEDS: FLINTSTONES COMPLETE CHEWABLE TAB PO SCH (08:42)
[2018-06-15] MEDS: OMEGA-3 (PURIFIED FISH OIL) 1 GM CAP PO SCH (08:43)
[2018-06-15] MEDS: ASCORBIC ACID 500 MG TAB PO SCH (08:43)
[2018-06-15] MEDS: clonazePAM 0.5 MG TAB PO SCH ×2 (08:43→20:45)
[2018-06-15] MEDS: SULFA/TRIMETH 400/80MG TAB PO SCH (08:43)
[2018-06-15] MEDS: CHOLECALCIFEROL 1,000 UNITS TAB PO SCH (08:43)
[2018-06-15] MEDS: PANTOprazole 40 MG TAB PO SCH (08:43)
--- NOTE | 2018-06-15 10:25 | Psychiatric Progress Note ---
Date of Service June 15, 2018 Impression / Recommendations Neelam Li is a 47 y/o female with a long mental health history, medical history complicated by GI surgeries, presents with recurrence of SI and thoughts of killing her son, and then herself. CYS has been contacted, and her son is being cared for by friends. She is reporting improved mood, is focused on wanting stimulants and benzodiazepines as well as medical marijuana, and wants to go to inpatient eating disorder treatment at [facility]. (1) Depression: 06/13 The patient was admitted to the [facility] ([facility] mental health unit) on q15 min checks (behavioral with suicide precautions) for safety. The patient will participate in group, recreational, and milieu therapies and will be offered additional individual and family sessions as clinically appropriate. She was made aware that shorter acting medications are preferred given gastric surgery and that there is a higher risk of seizure in patients with ED on Wellbutrin, particularly dose dependent. She is refusing any med changes today and was so decompensated that a MNPR is required. She was exposing her abdomen repeatedly above the pubis in 1-on-1 session and had difficulty maintaining a conversation. 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 Indication for methylphenidate is unclear and should likely be tapered. Difficulty is no records available this weekend. 06/15 -request records from her outpatient psychiatric [facility]ING MACHINE TENDER, Tommy Rodriguez, and SUJATA Pritchett, and send records to coordinate care. -Move bupropion to 0800 hrs. per patient's request, and continue afternoon dose. -Agree with personality disorder diagnosis, with borderline and histrionic traits. (2) Anxiety: 06/13 PTSD vs personality, resulting in somatization though given surgical history cannot exclude other etiology. Regardless seems to be some degree of Benzo withdrawal so will resume Klonopin 0.5 mg BID and monitor. (3) Abdominal pain: 06/13 Monitor response to benzo, consider hospitalist consult. 06/14 d/c stimulant, appreciate input from nutrition 06/15 -reviewed all lab results with patient, BMP within normal limits yesterday, all electrolytes normal. (4) Eating disorder, unspecified: 06/14--explore level of care assessment when psychiatrically more stable. 06/15 -patient requesting referral to [facility] for eating disorder treatment. Denying acute safety concerns. 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 Review of Systems Notes Denies GI symptoms, facial numbness. Sleep Information Total Hours of Sleep: 6 Sleep Comments: pt. sleeps with multi pillows placed positionally to help manage pain/physical discomforts/issues. Meal Information Percent Meal Consumed - Breakfast: 100 Percent Meal Consumed - Lunch: 30 Percent Meal Consumed - Dinner: 50 Subjective Subjective Patient was seen & assessed and interval progress reviewed with Treatment Team. Staff report she is attending and participating in treatment, said she felt relieved after disclosing the thoughts to harm herself and her son, as it has been bothering her a great deal. She was upset after she tried to call her son, and felt like he did not really want to talk to her. She said that made her feel like the future was hopeless and suicide inevitable. She has been interacting appropriately with peers, laughing and joking. She has been focused on wanting to go to a eating disorder program in [place]. On my assessment, the patient states she feels safe and relieved in the hospital, is glad her friends are helping to care for her son, and "I feel grounded and my head is significantly quieter." She rates her mood a 4-5 out of 10, saying "I laughed this morning, I was surprised." She denies SI currently, but says she is realizing "how invasive the thoughts were, how out of control I was" prior to admission, saying "I felt so insane I couldn't stop." She denies thoughts of harming others, saying she told staff she was having thoughts about harming her son because "I realized how overwhelmed I was, I really need help." She says she now realizes "I needed to be here, to be safe, so I'm done fighting that." She says she's "not capable of taking care of Stephen right now, can't even take care of myself." She wants to "put a system in place" to help her take care of herself after discharge, and is hoping that she can go to [facility] for eating disorder treatment "as soon as possible." She thinks she could stay with her friend if she was discharged and wasn't going straight to ED treatment (this is the same friend that is caring for her son). She also has some other friends she might be able to stay with if she cannot stay with her son per CYS. She says she "needs to stay with someone else right now, afraid I'll get overwhelmed again." She wants all of her medication returned to their home doses, including benzodiazepines and stimulants, saying "I don't need med management." She wants to know what could have caused her abdominal discomfort and facial numbness, asking if it could have been psychosomatic. She asks to see all of her labs from admission and yesterday, and all results were reviewed with her. She states that she does not want to be woken up for her morning dose of bupropion, saying "that is ridiculous." She wants to know if medical marijuana would be recommended for her. Physical Exam Mental Examination Well-nourished well-developed white female appearing older than her stated age. Casually dressed and adequately groomed, short hair, no makeup, seated in no acute distress with legs pulled up to her chest. Mood is "a 4 or 5," and affect is dramatic, mildly labile, somewhat superficial. Speech is dramatic and style, distraught tone. Thoughts are circumstantial, denying SI, HI, paranoia, hallucinations; no delusions evident. Alert and oriented. Memory and language are grossly intact, attention mildly impaired. Insight and judgment impaired. Vital Signs (Past 24 Hours) Last Vital Signs Temp 36.5 C 06/15/18 06:46 Pulse 76 06/15/18 06:47 Resp 16 06/15/18 06:46 BP 94/59 L 06/15/18 06:47 Pulse Ox 99 06/13/18 00:54 Results & Data Laboratory Results Laboratory Results - last 24 hr 06/14/18 12:19 Sodium 141 Potassium 4.1 D Chloride 107 Carbon Dioxide 26 Anion Gap 7.0 BUN 14 Creatinine 0.73 Est Cr Clr Drug Dosing 84.0 Est GFR ( Amer) 112.1 Est GFR (Non-Af Amer) 96.7 BUN/Creatinine Ratio 19.2 Glucose 111 H Calcium 9.4 Phosphorus 3.3 Magnesium 2.1 Current Inpatient Medications Current Inpatient Medications: Current Inpatient Medications Acetaminophen (Tylenol) 650 mg PO Q4H PRN PRN Reason: Headache or Minor Fever Stop: 07/13/18 00:33 Last Admin: 06/13/18 21:22 Dose: 650 mg Documented by: Al Hydrox/Mg Hydrox/Simethicone (Maalox) 30 ml PO Q4H PRN PRN Reason: GI Upset Stop: 07/13/18 00:33 Albuterol (Ventolin Hfa) 2 puffs INH Q4H PRN PRN Reason: SOB/WHEEZING Stop: 07/13/18 12:29 Ascorbic Acid (Vitamin C) 500 mg PO DAILY ZEFERINO Stop: 07/14/18 08:59 Last Admin: 06/15/18 08:43 Dose: 500 mg Documented by: Bismuth Subsalicylate (Kaopectate) 15 ml PO PRN PRN PRN Reason: Loose Stool Stop: 07/13/18 00:33 Bupropion HCl (Wellbutrin) 200 mg PO BID@0600,1400 [facility] Stop: 07/13/18 05:59 Last Admin: 06/15/18 08:43 Dose: 200 mg Documented by: Calcium Carbonate (Tums) 500 mg PO DAILY PRN PRN Reason: Acid Reflux Stop: 07/13/18 11:44 Clonazepam (Klonopin) 0.5 mg PO BID17 ZEFERINO Stop: 07/14/18 16:59 Last Admin: 06/15/18 08:43 Dose: 0.5 mg Documented by: Diclofenac Sodium (Voltaren 1% Top) 1 appln EXT QID PRN PRN Reason: Pain Stop: 07/13/18 16:59 Last Admin: 06/14/18 21:59 Dose: 1 appln Documented by: Docusate Sodium (Colace) 100 mg PO DAILY PRN PRN Reason: Constipation Stop: 07/13/18 11:44 Fish Oil ([place]-3 (Purified Fish Oil)) 1 gm PO DAILY ZEFERINO Stop: 07/14/18 08:59 Last Admin: 06/15/18 08:43 Dose: 1 gm Documented by: Fluticasone Propionate (Flonase) 1 sprays NA DAILY PRN PRN Reason: Nasal Congestion Stop: 07/13/18 11:44 Hydroxyzine HCl (Vistaril) 50 mg PO HSZ PRN PRN Reason: Insomnia Stop: 07/13/18 00:33 Hydroxyzine HCl (Vistaril) 25 mg PO Q4H PRN PRN Reason: Anxiety Stop: 07/13/18 00:33 Ioversol (Optiray 320 100ml) 94 ml IV ONCE PRN PRN Reason: Interaction Checking Stop: 06/16/18 20:44 Last Admin: 06/12/18 20:46 Dose: 94 ml Documented by: Levothyroxine Sodium (Synthroid) 88 mcg PO DAILYBB [facility] Stop: 07/13/18 07:59 Last Admin: 06/15/18 06:02 Dose: 88 mcg Documented by: Magnesium Hydroxide (Milk Of Magnesia) 30 ml PO DAILY PRN PRN Reason: Heartburn Stop: 07/13/18 00:33 Miscellaneous (Order Awaiting Action) 1 ea N/A QS [facility] Stop: 07/13/18 15:59 Last Admin: 06/15/18 08:42 Dose: Not Given Documented by: Miscellaneous (Order Awaiting Action) 1 ea N/A QS [facility] Stop: 07/13/18 15:59 Last Admin: 06/15/18 09:51 Dose: Not Given Documented by: Miscellaneous (Order Awaiting Action) 1 ea N/A QS [facility] Stop: 07/13/18 15:59 Last Admin: 06/15/18 08:42 Dose: Not Given Documented by: Multivitamins/Folic Acid/Vitamin C (Flintstones Complete Chew Tab) 1 tab PO DAILY [facility] Stop: 07/14/18 08:59 Last Admin: 06/15/18 08:42 Dose: 1 tab Documented by: Pantoprazole Sodium (Protonix) 40 mg PO QAM [facility] Stop: 07/13/18 12:59 Last Admin: 06/15/18 08:43 Dose: 40 mg Documented by: Polyethylene Glycol (Miralax Powder Packet) 17 gm PO DAILY PRN PRN Reason: Constipation Stop: 07/13/18 11:44 Simethicone (Mylicon) 80 mg PO BID PRN PRN Reason: GAS/BLOATING Stop: 07/13/18 11:44 Sodium Chloride ([place] Nasal) 1 - 2 sprays NA PRN PRN PRN Reason: Nasal Dryness/Congestion Stop: 07/13/18 00:33 Trimethoprim/Sulfamethoxazole (Septra 400/80mg Tab) 1 tab PO QAM ZEFERINO Stop: 06/23/18 08:59 Last Admin: 06/15/18 08:43 Dose: 1 tab Documented by: Vitamin D (Vitamin D3) 2,000 units PO DAILY ZEFREINO Stop: 07/14/18 08:59 Last Admin: 06/15/18 08:43 Dose: 2,000 units Documented by: Post Discharge Appointments Primary Care Physician Name Of Family Doctor: Shreyas Akins Family Medicine Therapist Name of Therapist: Eula Ryder, private practice in [facility] Date of Therapist Appointment: 06/16/18 Time of Therapist Appointment: 9am Tissue Recovery Technician Name of Tissue Recovery Technician: None CPT Code CPT Code 53965 (1) Depression Depression Type: unspecified Qualified Code(s): F32.9 - Major depressive disorder, single episode, unspecified
[2018-06-15] MEDS: DICLOFENAC SOD 1% GEL 100 GM TUBE EXT PRN (21:05)
[2018-06-16] MEDS: LEVOTHYROXINE SODIUM 88 MCG TABLET PO SCH (06:25)
[2018-06-16] MEDS: PANTOprazole 40 MG TAB PO SCH (08:35)
[2018-06-16] MEDS: FLINTSTONES COMPLETE CHEWABLE TAB PO SCH (08:35)
[2018-06-16] MEDS: clonazePAM 0.5 MG TAB PO SCH ×2 (08:35→22:46)
[2018-06-16] MEDS: SULFA/TRIMETH 400/80MG TAB PO SCH (08:35)
[2018-06-16] MEDS: OMEGA-3 (PURIFIED FISH OIL) 1 GM CAP PO SCH (08:35)
[2018-06-16] MEDS: buPROPion HCl 100 MG TABLET PO SCH ×2 (08:35→14:08)
[2018-06-16] MEDS: ASCORBIC ACID 500 MG TAB PO SCH (08:36)
[2018-06-16] MEDS: CHOLECALCIFEROL 1,000 UNITS TAB PO SCH (08:36)
[2018-06-16] MEDS: DICLOFENAC SOD 1% GEL 100 GM TUBE EXT PRN ×2 (09:38→21:28)
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
[2018-06-16] MEDS: SACCHAROMYCES BOULARDII 250 MG CAP PO SCH (12:08)
[2018-06-16] MEDS: ACETAMINOPHEN 325 MG TAB PO PRN (21:26)
[2018-06-17] MEDS: LEVOTHYROXINE SODIUM 88 MCG TABLET PO SCH (06:25)
[2018-06-17] MEDS: buPROPion HCl 100 MG TABLET PO SCH ×2 (08:24→12:47)
[2018-06-17] MEDS: CHOLECALCIFEROL 1,000 UNITS TAB PO SCH (08:24)
[2018-06-17] MEDS: FLINTSTONES COMPLETE CHEWABLE TAB PO SCH (08:24)
[2018-06-17] MEDS: clonazePAM 0.5 MG TAB PO SCH (08:24)
[2018-06-17] MEDS: SACCHAROMYCES BOULARDII 250 MG CAP PO SCH (08:24)
[2018-06-17] MEDS: OMEGA-3 (PURIFIED FISH OIL) 1 GM CAP PO SCH (08:24)
[2018-06-17] MEDS: ASCORBIC ACID 500 MG TAB PO SCH (08:24)
[2018-06-17] MEDS: SULFA/TRIMETH 400/80MG TAB PO SCH (08:24)
[2018-06-17] MEDS: PANTOprazole 40 MG TAB PO SCH (08:24)
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
[2018-06-18] MEDS ORDERED: clonazePAM 0.5 MG TAB PO SCH (09:00)
== END 2018-06-17 13:19 | disposition home or self-care (01) | DRG 881 ==
LOC: ED 16:47 → SUATTDRO 23:40 → 3S 23:40